=== PATIENT | female | born 1975 | race Caucasian/White ===

== ENCOUNTER 2021-04-06 10:18 | Emergency (ER) | payer MEDICAID ==
[~2021-04-06] VITALS: Ht 175.3 cm; Wt 76.6 kg
--- NOTE | 2021-04-06 11:31 | NUR ---
PT AMB WITH STEADY GAIT TO RESTROOM
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
--- NOTE | 2021-04-06 11:42 | NUR ---
NONCOMPLIANT WITH TAKING INSULIN, NO MED X1 MONTH, Jaz CASTILLO AT BEDSIDE TO THIEN PT
[2021-04-06] MEDS ORDERED: gentamicin 0.1% topical ointment 15gm TP STA (11:48)
[2021-04-06] MEDS ORDERED: normal saline 1000ML IV soln IVB ONE (11:55)
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
[2021-04-06 12:14] LABS: BASOPHILS % (AUTO) 0.6 % (0-1); EOSINOPHILS # (AUTO) 0.2 X10'3 (0-0.9); EOSINOPHILS % (AUTO) 2.2 % (0-6); HEMATOCRIT 42.2 % (35.0-45.0); HEMOGLOBIN 14.4 g/dl (12.0-16.0); LYMPHOCYTES # (AUTO) 1.5 X10'3 (1.1-4.8); LYMPHOCYTES % (AUTO) 21.4 % (21-51); MEAN CORPUSCULAR HEMOGLOBIN 31.1 PG (27.0-31.0); MEAN CORPUSCULAR HGB CONC 34.1 g/dL (33.0-36.5); MEAN CORPUSCULAR VOLUME 91.2 FL (78-98); MEAN PLATELET VOLUME 8.2 FL (7.4-10.4); MONOCYTES # (AUTO) 0.4 X10'3 (0-0.9); MONOCYTES % (AUTO) 6.1 % (2-12); NEUTROPHILS # (AUTO) 4.8 X10'3 (1.8-7.7); NEUTROPHILS % (AUTO) 69.7 % (42-75); PLATELET COUNT 238 X10'3 (140-440); RED BLOOD COUNT 4.63 X10'6 (4.20-5.60); WHITE BLOOD COUNT 6.9 X10'3 (4.5-11.0)
[2021-04-06 12:18] LABS: URINE HCG NEGATIVE (NEG)
[2021-04-06 12:23] LABS: CLARITY,URINE CLOUDY (Clear); COLOR,URINE STRAW (Yellow); GLUCOSE, URINE >=1000 mg/dl (Neg); KETONES,URINE NEGATIVE (Neg); LEUKOCYTE ESTERASE ,URINE TRACE (Neg); NITRITES, URINE NEGATIVE (Neg); OCCULT BLOOD,URINE TRACE-INTACT (Neg); PROTEIN,URINE TRACE mg/dl (Neg); UA COLLECTION TYPE CLN CATCH MIDSTREAM
--- NOTE | 2021-04-06 12:25 | NUR ---
small business banking officer washed wound to left foot with soap and water, pt violette well
[2021-04-06 12:28] LABS: ALANINE AMINOTRANSFERASE 19 U/L (12-78); ALBUMIN 3.1 G/DL (3.4-5.0); ALBUMIN/GLOBULIN RATIO 0.8 (1.1-1.5); ALKALINE PHOSPHATASE 77 IU/L (46-116); ANION GAP 6 (8-16); ASPARTATE AMINO TRANSFERASE 8 U/L (10-37); BILIRUBIN,TOTAL 0.4 MG/DL (0.1-1.0); BLOOD UREA NITROGEN 15 MG/DL (7-18); BUN/CREATININE RATIO 18.8 (6.6-38.0); CALCIUM 8.6 MG/DL (8.5-10.1); CHLORIDE 100 MMOL/L (99-107); POTASSIUM 3.9 MMOL/L (3.5-5.1); SODIUM 134 MMOL/L (135-145); TOTAL PROTEIN 7.1 G/DL (6.4-8.2); eGFR 77 ML/MIN
[2021-04-06 12:32] LABS: MUCUS STRANDS FEW /LPF (Neg); SQUAMOUS EPITHELIAL CELL,UR MANY /LPF (FEW)
[2021-04-06 12:33] LABS: WBC CLUMPS,URINE MODERATE /HPF (NEGATIVE); WBC,URINE TNTC /HPF (0-4)
[2021-04-06 12:34] LABS: YEAST MANY /HPF (NEGATIVE)
[2021-04-06 12:35] LABS: BACTERIA,URINE 2+ /HPF (Neg)
[2021-04-06 12:36] LABS: RBC,URINE 0-2 /HPF (0-2)
[2021-04-06 12:39] LABS: GLUCOSE 451 MG/DL (70-104)
[2021-04-06] MEDS ORDERED: insulin regular, human 10 units/0.1 ml syringe SQ ONE (12:50)
[2021-04-06] MEDS ORDERED: insulin regular, human 10 units/0.1 ml syringe IV ONE (12:50)
--- NOTE | 2021-04-06 12:56 | NUR ---
called [facility], they will talk with pt at their facility, has appt at [phone]
--- NOTE | 2021-04-06 13:34 | NUR ---
Jaz SHIPLEY PA AT BEDSIDE TO DEBRIDE WOUND, GAVE VERBAL ORDER TO GIVE ONLY IV INSULIN, BLOOD SUGAR 334
--- NOTE | 2021-04-06 14:28 | NUR ---
[place] [employer] at bedside to talk with pt, case #[id number]
[2021-04-06] MEDS ORDERED: INSU100I8 SQ (14:29)
[2021-04-06] MEDS ORDERED: LANTUS SQ (14:29)
--- NOTE | 2021-04-06 14:37 | NUR ---
taxi will be in 35minutes to take pt to [facility]
--- NOTE | 2021-04-06 14:40 | NUR ---
staff at [facility] aware pt will be there in approx 40minutes
[2021-04-06 14:48] VITALS: BP 135/70
--- NOTE | 2021-04-06 14:50 | NUR ---
pt declined taxi, has ride with a friend, Armida, to [facility]
== END 2021-04-06 14:52 | disposition home or self-care (01) ==
LOC: ER 10:19
DX: S40.022A Contusion of left upper arm, initial encounter (principal); R73.9 Hyperglycemia, unspecified; X58.XXXA Exposure to other specified factors, initial encounter; Y93.89 Activity, other specified; Y92.89 Other specified places as the place of occurrence of the external cause; Y99.8 Other external cause status
CPT/HCPCS: 36415; 73630; 80053; 81001; 81025; 82948; 85025; 96361; 96374; 99284; J1815; J7030

== ENCOUNTER 2021-04-09 00:54 | Emergency (ER) | payer MEDICAID ==
[~2021-04-09] VITALS: Ht 175.3 cm; Wt 74.3 kg
[~2021-04-09 00:54] MED LIST: INSU100I8 SQ; LANTUS SQ
[2021-04-09 01:21] VITALS: BP 143/101
== END 2021-04-09 02:10 | disposition home or self-care (01) ==
LOC: ER 00:56
DX: S91.302A Unspecified open wound, left foot, initial encounter (principal); E11.9 Type 2 diabetes mellitus without complications; Z59.0 Homelessness; Z79.899 Other long term (current) drug therapy; X58.XXXA Exposure to other specified factors, initial encounter; Y93.89 Activity, other specified; Y92.89 Other specified places as the place of occurrence of the external cause; Y99.8 Other external cause status
CPT/HCPCS: 82948; 99282

== ENCOUNTER 2021-04-13 13:15 | Emergency (ER) | payer MEDICAID ==
[~2021-04-13] VITALS: Ht 175.3 cm; Wt 70.0 kg
[2021-04-13 13:40] LABS: BASOPHILS # (AUTO) 0.1 X10'3 (0-0.2); BASOPHILS % (AUTO) 0.6 % (0-1); EOSINOPHILS % (AUTO) 0.4 % (0-6); HEMATOCRIT 47.2 % (35.0-45.0); HEMOGLOBIN 16.1 g/dl (12.0-16.0); LYMPHOCYTES # (AUTO) 1.7 X10'3 (1.1-4.8); LYMPHOCYTES % (AUTO) 17.8 % (21-51); MEAN CORPUSCULAR HEMOGLOBIN 30.9 PG (27.0-31.0); MEAN CORPUSCULAR VOLUME 90.9 FL (78-98); MEAN PLATELET VOLUME 7.6 FL (7.4-10.4); MONOCYTES # (AUTO) 0.6 X10'3 (0-0.9); MONOCYTES % (AUTO) 6.6 % (2-12); NEUTROPHILS % (AUTO) 74.6 % (42-75); PLATELET COUNT 343 X10'3 (140-440); RED CELL DISTRIBUTION WIDTH 13.3 % (11.5-14.5); WHITE BLOOD COUNT 9.3 X10'3 (4.5-11.0)
[2021-04-13 13:53] LABS: ALANINE AMINOTRANSFERASE 12 U/L (12-78); ALBUMIN 3.2 G/DL (3.4-5.0); ALBUMIN/GLOBULIN RATIO 0.7 (1.1-1.5); ALKALINE PHOSPHATASE 81 IU/L (46-116); ANION GAP 14 (8-16); ASPARTATE AMINO TRANSFERASE 12 U/L (10-37); BILIRUBIN,TOTAL 1.1 MG/DL (0.1-1.0); BLOOD UREA NITROGEN 9 MG/DL (7-18); BUN/CREATININE RATIO 14.3 (6.6-38.0); CHLORIDE 102 MMOL/L (99-107); CREATININE 0.63 MG/DL (0.40-0.90); GLUCOSE 280 MG/DL (70-104); POTASSIUM 3.4 MMOL/L (3.5-5.1); SODIUM 138 MMOL/L (135-145); TOTAL CARBON DIOXIDE 22.3 MMOL/L (24-32); TOTAL PROTEIN 7.8 G/DL (6.4-8.2); eGFR > 90 ML/MIN
[2021-04-13 14:27] LABS: URINE HCG NEGATIVE (NEG)
[2021-04-13 14:29] LABS: CLARITY,URINE CLOUDY (Clear); COLOR,URINE YELLOW (Yellow); GLUCOSE, URINE >=1000 mg/dl (Neg); KETONES,URINE >=80 mg/dl (Neg); LEUKOCYTE ESTERASE ,URINE TRACE (Neg); NITRITES, URINE NEGATIVE (Neg); OCCULT BLOOD,URINE SMALL (Neg); PH,URINE 5.5 (4.8-8.0); PROTEIN,URINE >=300 mg/dl (Neg); UA COLLECTION TYPE CLN CATCH MIDSTREAM
[2021-04-13 14:41] LABS: BACTERIA,URINE 4+ /HPF (Neg); SQUAMOUS EPITHELIAL CELL,UR MANY /LPF (FEW); WBC,URINE TNTC /HPF (0-4)
[2021-04-13 14:42] LABS: RBC,URINE 0-2 /HPF (0-2)
[2021-04-13] MEDS ORDERED: dextrose 50%-water 50ml dispensing syringe IV PRN ×2 (17:20)
[2021-04-13] MEDS ORDERED: dextrose ORAL solution 15 GM/59 ML bottle PO PRN ×2 (17:20)
[2021-04-13] MEDS ORDERED: MESSAGE TO PHARMACY PO ONE (17:20)
[2021-04-13] MEDS ORDERED: glucagon, human recombinant 1mg kit SUBCUT PRN (17:20)
[2021-04-13 17:44] LABS: HEMOGLOBIN A1C 9.8 % (4.5-6.2)
[2021-04-13 17:51] LABS: URINE AMPHETAMINE SCREEN NEGATIVE (Neg); URINE BARBITUATE SCREEN NEGATIVE (Neg); URINE BENZODIAZEPINES SCREEN NEGATIVE (Neg); URINE CANNABINOID SCREEN POSITIVE (Neg); URINE COCAINE SCREEN NEGATIVE (Neg); URINE METHADONE SCREEN NEGATIVE (Neg); URINE OPIATE SCREEN POSITIVE (Neg); URINE PHENCYCLIDINE SCREEN NEGATIVE (Neg)
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
[2021-04-13] MEDS: insulin Lispro (HumaLOG) vial - multi-dose SQ SCH ×2 (19:32→21:28)
[2021-04-13] MEDS ORDERED: NO HOME MEDS (20:05)
--- NOTE | 2021-04-13 20:15 | NUR ---
Dr Dsouza contacted and briefly reviewed patient with him and orders received.
[2021-04-13] MEDS: traZODone 50mg tablet PO SCH ×2 (20:16→20:38)
[2021-04-13] MEDS: hydrOXYzine 25 MG tablet PO PRN (20:38)
[2021-04-13] MEDS: sulfamethoxazole/trimethoprim DS (800/160mg) tablet PO SCH (20:38)
[2021-04-13] MEDS: insulin glargine (Lantus) pen - multi-dose SQ SCH (21:25)
--- NOTE | 2021-04-13 21:44 | NUR ---
The patient appears to be sleeping at this time.
--- NOTE | 2021-04-13 23:35 | NUR ---
The patient appears to be sleeping.
--- NOTE | 2021-04-14 01:15 | NUR ---
The patient appears to be sleeping
--- NOTE | 2021-04-14 02:47 | NUR ---
The patient appears to be sleeping
--- NOTE | 2021-04-14 04:53 | NUR ---
The patient appeared to have slept well during the night.
--- NOTE | 2021-04-14 07:49 | NUR ---
PATIENT SLEEPING AT THIS TIME IN HER LEFT SIDE.
[2021-04-14] MEDS: insulin Lispro (HumaLOG) vial - multi-dose SQ SCH ×4 (08:36→20:57)
[2021-04-14] MEDS: sulfamethoxazole/trimethoprim DS (800/160mg) tablet PO SCH ×2 (08:36→20:37)
--- NOTE | 2021-04-14 08:42 | NUR ---
PATIENT AT THIS TIME ATE 54GM OF BREAKFAST AND 100%, PATIENT B/S257 SO PATIENT BROUGHT UP ONE LEVEL TO LEVEL 3, PATIEN T COOPERATIVE AND TOOK HER MEDICATIONS WITHOUT HESITATION.
--- NOTE | 2021-04-14 11:35 | NUR ---
PATIENT HAS BEEN SLEEPING MOST OF THE AM HAS GONE TO THE BATHROOM ONCE AND THAT IS IT.
--- NOTE | 2021-04-14 13:02 | NUR ---
PT SITTING UP AND EATING LUNCH
--- NOTE | 2021-04-14 13:38 | NUR ---
PATIENT AT THIS TIME HAD LUNCH AND WENT BACK TO SLEEP, PATIENT IS STILL PENDING TO GET EVALUATED.
[2021-04-14] MEDS: hydrOXYzine 25 MG tablet PO PRN (14:34)
--- NOTE | 2021-04-14 15:14 | NUR ---
PATIENT AT THIS TIME GIVEN ATARAX HAS PATIENT WAS CRYING NON-STOP AFTER BNEING EVALUATED PATIENT NOW UNDER 5150.
--- NOTE | 2021-04-14 17:08 | NUR ---
PATIENT SLEEPING NO SIGNS OF DISTRESS.
--- NOTE | 2021-04-14 18:52 | NUR ---
The patient continues very depressed and tearful. Continues to have suicidal thinking. Very helpless and hopeless. She does express a desire to get back on her feet and see her daughter.
--- NOTE | 2021-04-14 19:07 | NUR ---
CHANGED DRESSING AND RE WRAPPED PT'S LEFT FOOT
--- NOTE | 2021-04-14 20:00 | NUR ---
The patient appears to be sleeping
[2021-04-14] MEDS: traZODone 50mg tablet PO SCH (20:37)
[2021-04-14] MEDS: lactobacillus rhamnosus 10,000 MMU CELLS/CAPSULE PO SCH (20:37)
[2021-04-14] MEDS: insulin glargine (Lantus) pen - multi-dose SQ SCH (20:56)
--- NOTE | 2021-04-14 22:41 | NUR ---
The patient appears to be sleeping
--- NOTE | 2021-04-15 00:22 | NUR ---
The patient appears to be sleeping
--- NOTE | 2021-04-15 01:22 | NUR ---
The patient appears to be sleeping
--- NOTE | 2021-04-15 03:00 | NUR ---
The patient appears to be sleeping
--- NOTE | 2021-04-15 04:38 | NUR ---
The patient appears to be sleeping
--- NOTE | 2021-04-15 07:00 | NUR ---
Pt resting with eyes closed, effortless respirations observed.
[2021-04-15] MEDS: lactobacillus rhamnosus 10,000 MMU CELLS/CAPSULE PO SCH ×2 (08:24→19:43)
[2021-04-15] MEDS: sulfamethoxazole/trimethoprim DS (800/160mg) tablet PO SCH ×2 (08:24→19:43)
[2021-04-15] MEDS: insulin Lispro (HumaLOG) vial - multi-dose SQ SCH ×2 (09:11→19:50)
--- NOTE | 2021-04-15 11:00 | NUR ---
Pt remains calm and cooperative, pt continues to denie needs.
[2021-04-15] MEDS: hydrOXYzine 25 MG tablet PO PRN ×2 (13:37→19:45)
--- NOTE | 2021-04-15 13:40 | NUR ---
Gave report to Petty from [facility] for eval of possible placement.
--- NOTE | 2021-04-15 14:40 | NUR ---
Received call from Nena of [facility] and informed pt accepted at [facility] by ANNA Holguin. Pt to be taken over sometime tomorrow (04/16/21) morning.
[2021-04-15] MEDS: traZODone 50mg tablet PO SCH (19:43)
--- NOTE | 2021-04-15 20:00 | NUR ---
PT GIVEN HER EVENING MEDS AND AFTER DINNER INSULIN. PT IS COOPERATIVE AND POLITE. REPORTS SHE DOES SMOKE AND WOULD LIKE A NICOTINE PATCH.
[2021-04-15] MEDS: insulin glargine (Lantus) pen - multi-dose SQ SCH (22:11)
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
--- NOTE | 2021-04-15 23:13 | NUR ---
PT SLEEPING, LYING ON HER RIGHT SIDE WITH BLANKETS COVERING TO HER SHOUDERS . RR 14 AND UNLABORED. SITTER AND RN WITHIN VIEW OF PT AAT .
--- NOTE | 2021-04-16 03:22 | NUR ---
Pt remains alseep and is lying on her back with blankets covering to her chest. Sitter and RN within view of Pt AAT.
--- NOTE | 2021-04-16 05:06 | NUR ---
Pt remains asleep.
--- NOTE | 2021-04-16 05:12 | NUR ---
Pt had an order for a Wound Care Consult written by Dr. Valle 04/14/21 at 0710 and no notes reflect that the Pt has been seen nor did the patient report ever seeing anyone from Wound Care. I called and left a message (as noted to do on the order set) at #[phone].
[2021-04-16 05:47] VITALS: BP 131/84
--- NOTE | 2021-04-16 06:14 | NUR ---
Pt sleeping soundly all night (after given HS meds). Awakened for am VS. VSS. Pt then went back to sleep.
--- NOTE | 2021-04-16 07:00 | NUR ---
recived call from charge nurse [place] regarding pt wound care consult ,notified that [facility] last night nurse requested but will page them again for pt care.
[2021-04-16] MEDS: sulfamethoxazole/trimethoprim DS (800/160mg) tablet PO SCH (08:45)
[2021-04-16] MEDS: lactobacillus rhamnosus 10,000 MMU CELLS/CAPSULE PO SCH (08:45)
[2021-04-16] MEDS: insulin Lispro (HumaLOG) vial - multi-dose SQ SCH (08:53)
== END 2021-04-16 10:35 ==
LOC: ER 13:16
DX: R45.851 Suicidal ideations (principal); Z20.822 Contact with and (suspected) exposure to COVID-19; E11.621 Type 2 diabetes mellitus with foot ulcer; L97.529 Non-pressure chronic ulcer of other part of left foot with unspecified severity; E11.65 Type 2 diabetes mellitus with hyperglycemia; F41.0 Panic disorder [episodic paroxysmal anxiety]; F31.9 Bipolar disorder, unspecified; F15.90 Other stimulant use, unspecified, uncomplicated; F11.90 Opioid use, unspecified, uncomplicated; Z59.0 Homelessness; Z79.4 Long term (current) use of insulin
CPT/HCPCS: 36415; 80053; 80305; 81001; 81025; 82948; 83036; 84443; 85025; 87426; 96372; 99285; J1815; Q0177